=== PATIENT | male | born 1970 | race Two or more races ===

== ENCOUNTER 2023-02-11 22:28 | Emergency (ER) | payer BC ==
[2023-02-12] MEDS ORDERED: Timolol Maleate 0.5% Ophth Soln 5 ML Bottle EYEBOTH ONE (00:57)
== END 2023-02-12 03:23 ==
LOC: JD.ED 22:28
DX: S02.32XA Fracture of orbital floor, left side, initial encounter for closed fracture (principal); Y04.0XXA Assault by unarmed brawl or fight, initial encounter
CPT/HCPCS: 70450; 70486; 99285; A9270; 99283